=== PATIENT | female | born 1980 | race Caucasian/White ===

== ENCOUNTER 2020-11-06 08:01 | Day surgery (SDC) | payer OTHER ==
[~2020-11-06] VITALS: Ht 167.6 cm; Wt 137.7 kg
[2020-11-06] VITALS (12 sets, daily range): BP systolic 103–144; BP diastolic 54–94; PULSE 70–106; TEMP 98.1–98.7
[2020-11-06] MEDS ORDERED: PRINIVIL20 MG PO (08:29)
[2020-11-06] MEDS ORDERED: CYMBALTA 60MG60 MG PO (08:29)
[2020-11-06] MEDS ORDERED: LEXAPRO20 MG PO (08:30)
[2020-11-06] MEDS ORDERED: RELAFEN 50500 MG/TAB PO (08:30)
[2020-11-06] MEDS ORDERED: D3-5050000 IU PO (08:31)
[2020-11-06] MEDS ORDERED: IRON TABLETS325 MG PO (08:33)
--- NOTE | 2020-11-06 08:39 | NUR ---
Patient has a history of MRSA. There are 2 negative MRSA Nares swabs on her chart from 10/07/20 [facility]
--- NOTE | 2020-11-06 09:03 | NUR ---
Patient's heart rate on admission was 106 bpm. Per the patient, she is nervous and her HR is normally 80-90 at baseline. Patient received pre-op Valium 5 mg. HR is re-checked after patient has had time to rest and is now 88bpm.
[2020-11-06] MEDS ORDERED: PERCOCET 325 MG1 TA2 PO (10:53)
[2020-11-06] MEDS ORDERED: MOTRIN 800800 MG/TAB PO (10:53)
--- NOTE | 2020-11-06 17:15 | NUR ---
Patient off oxygen, VSS while awake. O2 Saturation noted to drop to 84-89% when patient is asleep. Oxygen restarted at 2 L and physician notified. See physician notification.
--- NOTE | 2020-11-06 22:46 | NUR ---
O2 SATS REMAIN IN THE UPPER 90'S WHILE PT SLEEPING WITH NC ON AT 2L. NC REMOVED AT THIS TIME.
--- NOTE | 2020-11-07 01:30 | NUR ---
PT STATES THAT SHE HAS HAD DIFFICULTY SLEEPING DUE TO HER PULSE OX ALARMING BECUASE WHEN SHE FALLS ASLEEP HER SATS ARE BELOW 90%. MONITOR ADJUSTED TO ALARM IF O2 SATS DROP BELOW 85%. REMINDED PT THAT PHYSICIAN GAVE ORDERS TO CALL IF O2 SATS BELOW 80% WHILE SLEEPING. ENCOURAGED PT TO ATTEMPT TO GET SOME REST AND NOTIFY NURSE IF DYNAMAP BEGINS ALARMING.
[2020-11-07 03:09] VITALS: BP 109/60; PULSE 73; TEMP 97.7
--- NOTE | 2020-11-07 03:10 | NUR ---
THIS NURSE IN ROOM, PT STATES THAT PULSE OX ALARM JUST WOKE HER UP. SHE HAS CONTINUED TO HAVE DIFFICULTY SLEEPING DUE TO HER SATS DROPPING AND MONITOR ALARMING. 02 SAT CURRENTLY 96% WHILE PT IS AWAKE. NC REPLACED AT 1L. DYNAMAP SET TO ALARM IF O2 SAT BELOW 85%.
[2020-11-07 07:33] VITALS: BP 116/62; PULSE 75; TEMP 98.9
== END 2020-11-07 10:00 | disposition home or self-care (01) ==
LOC: SDCO 08:01 → OB 14:40 → SDCO 11-07 10:00
PROVIDERS: Obstetrics & Gynecology
DX: D25.1 Intramural leiomyoma of uterus (principal); N83.02 Follicular cyst of left ovary; N92.1 Excessive and frequent menstruation with irregular cycle; I10 Essential (primary) hypertension; D50.9 Iron deficiency anemia, unspecified; M06.9 Rheumatoid arthritis, unspecified; E66.9 Obesity, unspecified; Z68.42 Body mass index [BMI] 45.0-49.9, adult; M79.7 Fibromyalgia
CPT/HCPCS: OP; A4314; J0690; J1100; J1170; J1885; J2175; J2405; J2704; J2710; J3010; J7120

== ENCOUNTER 2020-11-09 05:44 | Emergency (ER) | payer OTHER ==
[~2020-11-09] VITALS: Ht 167.6 cm; Wt 138.6 kg
[~2020-11-09 05:44] MED LIST: CYMBALTA 60MG60 MG PO; D3-5050000 IU PO; IRON TABLETS325 MG PO; LEXAPRO20 MG PO; MOTRIN 800800 MG/TAB PO; PERCOCET 325 MG1 TA2 PO; PRINIVIL20 MG PO; RELAFEN 50500 MG/TAB PO
[2020-11-09 05:48] VITALS: TEMP 98.5
[2020-11-09 06:33] LABS: BASO % 0.4 % (0.0-2.0); EOS # 0.1 (0.0-0.7); EOS % 2.4 % (0-4.0); GRAN # 3.1 (1.4-6.5); GRAN % 62.1 % (42.2-75.2); HEMOGLOBIN 10.4 g/dl (12.5-16.0); LYMPH # 1.3 (1.2-3.4); LYMPH % 25.8 % (20.0-51.0); MEAN CELL VOLUME 80 fl (80.0-100.0); MEAN CORPUSCULAR HEMOGLOBIN 25 pg (27.0-31.0); MEAN CORPUSCULAR HGB CONC 31 g/dl (33.0-37.0); MEAN PLATELET VOLUME 9.5 fl (7.4-10.4); MONO # 0.4 (0.1-0.6); MONO % 8.9 % (1.7-9.3); PLATELET COUNT 215 K/mm3 (130-400); RED BLOOD COUNT 4.18 M/mm3 (4.10-5.30); REDCELL DISTRIBUTION WIDTH-CV 17.1 % (11.5-14.5)
[2020-11-09 06:34] LABS: HEMATOCRIT 33.4 % (37.0-47.0)
[2020-11-09 06:45] LABS: ALBUMIN 3.7 gm/dL (3.5-5.0); BILIRUBIN,TOTAL 0.4 mg/dL (0.0-1.0); CALCIUM 8.7 mg/dL (8.4-10.2); CREATININE, serum 1.07 (0.52-1.25); POTASSIUM 3.8 mmol/L (3.4-5.0); TOTAL PROTEIN 6.7 gm/dL (6.4-8.2)
[2020-11-09 09:07] LABS: COLLECTION METHOD CLEAN CATCH
[2020-11-09 09:45] VITALS: BP 128/81; PULSE 96
[2020-11-09 10:33] LABS: MUCOUS Present /lpf; PH 5 (5-8); URINE APPEARANCE Hazy; URINE BACTERIA None Seen /hpf; URINE BILIRUBIN Negative (NEGATIVE); URINE BLOOD 3+ (NEGATIVE); URINE COLOR Yellow; URINE GLUCOSE Negative (NEGATIVE); URINE KETONE Negative (NEGATIVE); URINE LEUKOCYTE ESTERASE Negative (NEGATIVE); URINE NITRATE Negative (NEGATIVE); URINE PROTEIN(semi-quant) 1+ (NEGATIVE); URINE RBC >50 /hpf; URINE UROBILINOGEN Negative (NEGATIVE)
== END 2020-11-09 09:47 | disposition home or self-care (01) ==
LOC: COL.ER 05:44
PROVIDERS: Emergency Medicine
DX: G89.18 Other acute postprocedural pain (principal); F32.9 Major depressive disorder, single episode, unspecified; F41.9 Anxiety disorder, unspecified; M79.7 Fibromyalgia
CPT/HCPCS: J1170; J2405; J7030; Q9967

== ENCOUNTER 2020-11-10 13:37 | Observation (INO) | payer OTHER ==
[2020-11-10] VITALS (7 sets, daily range): BP systolic 114–151; BP diastolic 39–85; PULSE 93–110; TEMP 97.7–97.9
--- NOTE | 2020-11-10 14:30 | NUR ---
PATIENT WHEELED TO 222. PATIENT ASSISTED FROM WHEELCHAIR TO BED. PATIENT STATES SHE IS HAVING PAIN /. PATIENT IN HOSPITAL GOWN. HAYES EMPTIED. PATIENT STATES SHE WENT TO DR WAGNER OFFICE THIS AM AND FOEY WAS PLACED. ADMISSION PREFORMED. DR ELIAS CALLED FOR ORDERS, PATIENT RESTING IN BED
--- NOTE | 2020-11-10 14:45 | NUR ---
ABDOMINAL ASSESMENT- LAP SITES X4, DRAINING CLEAR, ABD IN PLACE SATURATED. BOWEL SOUNDS HYPOACTIVE. VERY TENDER TO TOUCH
--- NOTE | 2020-11-10 15:43 | NUR ---
PATIENT HERE WITH ABD X2 TO ABDOMEN. ABD SATURATED, REPLACED WITH NEW DRESSING. URINE DRAINING INTO LEG BAG IS RED
[2020-11-10 16:53] LABS: HEMOGLOBIN 11.6 g/dl (12.5-16.0); MEAN CELL VOLUME 80 fl (80.0-100.0); MEAN CORPUSCULAR HEMOGLOBIN 25 pg (27.0-31.0); MEAN CORPUSCULAR HGB CONC 31 g/dl (33.0-37.0); MEAN PLATELET VOLUME 8.9 fl (7.4-10.4); PLATELET COUNT 238 K/mm3 (130-400); RED BLOOD COUNT 4.64 M/mm3 (4.10-5.30); REDCELL DISTRIBUTION WIDTH-CV 17.7 % (11.5-14.5)
--- NOTE | 2020-11-10 16:55 | NUR ---
PATIENT SIGNED CONSENT FOR SURGERY AND REFUSAL OF INFLUENZA VACCINE
[2020-11-10 17:06] LABS: ALBUMIN 4.3 gm/dL (3.5-5.0); BILIRUBIN,TOTAL 0.7 mg/dL (0.0-1.0); CALCIUM 9.5 mg/dL (8.4-10.2); CREATININE, serum 1.53 (0.52-1.25); POTASSIUM 3.7 mmol/L (3.4-5.0); TOTAL PROTEIN 7.5 gm/dL (6.4-8.2)
--- NOTE | 2020-11-10 17:10 | NUR ---
PATIENT HEADED TO OPERATING ROOM. REPORT GIVEN TO SWETA
--- NOTE | 2020-11-10 20:27 | NUR ---
2026- REPORT RECEIVED FROM KALIN ACUNA IN PACU. STATES PT WILL BE TRANSFERRED OVER SHORTLY. 2044- PT TO ROOM 222 PER BED. NURSE TO BEDSIDE, PT ORIENTED TO ROOM AND CALL LIGHTS. PT IS DROWSY BUT AWAKE. SHE IS ORIENTED. IV FLUIDS RUNNING TO GRAVITY AND HAYES TO DEPENDENT DRAINAGE. BEDSIDE HAND OFF COMPLETE. 2099- ASSESSMENT COMPLETE CHARTED. POSTOP VITAL SIGNS STARTED.
[2020-11-11] VITALS (7 sets, daily range): BP systolic 121–145; BP diastolic 51–83; PULSE 81–96; TEMP 97.9–98.9
--- NOTE | 2020-11-11 00:15 | NUR ---
0015- PT SEEMS TO BE TOLERATING WELL WITH OXYGEN AT 3L, SO OXYGEN DECREASED TO 2L PER NASAL CANNULA.
[2020-11-11 08:39] LABS: CALCIUM 8.3 mg/dL (8.4-10.2); CREATININE, serum 0.62 (0.52-1.25)
--- NOTE | 2020-11-11 09:30 | NUR ---
Ancef 2 grams i.v. given as ordered.
--- NOTE | 2020-11-11 11:29 | NUR ---
Rests in bed, alert. Request pain medication. 1135 Percocet 5/325 mg one given per request.
--- NOTE | 2020-11-11 12:30 | NUR ---
Eating a clear liquid diet. Denies any pain at this time.
--- NOTE | 2020-11-11 15:00 | NUR ---
Patient assisted up in bed. Ambulates outside of room. Tolerates well.
[2020-11-12 05:15] VITALS: BP 133/74; PULSE 87; TEMP 98.4
[2020-11-12 08:00] VITALS: BP 160/86; PULSE 93; TEMP 98.7
--- NOTE | 2020-11-12 09:52 | NUR ---
Several visit attempts; Product Builder left card offering spiritual care and God's blessings.
[2020-11-12 10:55] VITALS: BP 125/69; PULSE 90; TEMP 99.2
--- NOTE | 2020-11-12 11:18 | NUR ---
GLENN drain removed by surgical sales representative Raoul.
== END 2020-11-12 14:30 | disposition home or self-care (01) ==
LOC: COL.RAD 13:37 → OB 14:32
PROVIDERS: Urology; ADMIT Obstetrics & Gynecology
DX: N99.72 Accidental puncture and laceration of a genitourinary system organ or structure during other procedure (principal); S37.23XA Laceration of bladder, initial encounter; X58.XXXA Exposure to other specified factors, initial encounter; I10 Essential (primary) hypertension; G47.33 Obstructive sleep apnea (adult) (pediatric); M79.7 Fibromyalgia; M19.90 Unspecified osteoarthritis, unspecified site; F32.9 Major depressive disorder, single episode, unspecified; F41.9 Anxiety disorder, unspecified; Z79.899 Other long term (current) drug therapy; Z79.1 Long term (current) use of non-steroidal anti-inflammatories (NSAID); E66.01 Morbid (severe) obesity due to excess calories; Z68.42 Body mass index [BMI] 45.0-49.9, adult; Z90.79 Acquired absence of other genital organ(s); Z90.721 Acquired absence of ovaries, unilateral
CPT/HCPCS: G0378; J0690; J2405; J2704; J3010; J7120; Q9967

== ENCOUNTER → 2020-11-18 | Outpatient (CLI) | payer OTHER | LOC: COL.RAD 08:54 | DX: N99.71 Accidental puncture and laceration of a genitourinary system organ or structure during a genitourinary system procedure (principal) | CPT/HCPCS: Q9967 ==